=== PATIENT | male | born 1950 | race Caucasian/White ===

== ENCOUNTER → 2017-01-05 | Outpatient (CLI) | payer MEDICARE, OTHER ==
[~2017-01-05] MED LIST: BUPROPION XL150 MG PO; CHEST CONGESTI400 MG PO; CLARITIN10 MG PO; HYTRIN UD5 MG PO; MOBIC15 MG PO; PRILOSEC20 MG PO; ULTRAM50 MG PO; VITAMIN D35000 UNI1 PO; ZESTRIL40 MG PO
== END | disposition disaster alternative care site (69) ==
LOC: GOPD 12-29 → GRAD 08:51 → GOPD 09:00
PROC: BP38Y0Z Magnetic Resonance Imaging (MRI) of Right Shoulder using Other Contrast, Unenhanced and Enhanced (ICD-10-PCS; principal; 2017-01-05)
DX: M25.511 Pain in right shoulder (principal); M75.121 Complete rotator cuff tear or rupture of right shoulder, not specified as traumatic; M66.861 Spontaneous rupture of other tendons, right lower leg; M19.011 Primary osteoarthritis, right shoulder
CPT/HCPCS: A9579; J7030